=== PATIENT | male | born 1965 ===

== ENCOUNTER 2017-09-01 08:54 | Emergency (ER) | payer BC ==
[2017-09-01] MEDS ORDERED: Ketorolac 30 MG/ML SDV IVPUSH ONE (08:59)
--- NOTE | 2017-09-01 09:02 | EDM.PDOC ---
ED HPI GENERAL MEDICAL PROBLEM - General Stated Complaint: FALL Time Seen by Provider: 09/01/17 08:59 - History of Present Illness INITIAL COMMENTS - FREE TEXT/NARRATIVE: HISTORY AND PHYSICAL: History of present illness: The patient is a 51-year-old male who presents via EMS after slipping on the ice and falling his own height hitting his head complaining of head and neck pain. Patient states he was in his usual state of good health with no systemic complaints prior to these events. He did not pass out or blacked out but did feel dazed and he felt nauseated initially but that has subsided. He has no motor weakness no extremity complaints no upper or lower back pain as a result of this incident. He has a history of lumbar spine surgery but nothing with the cervical spine. Patient did not receive any medications prior to coming here. Patient says he does feel tingling and some numbness in his left upper extremity but he doesn't feel weak. He has no chest pain abdominal pain rib pain or buttocks pain. Review of systems: As per history of present illness and below otherwise all systems reviewed and negative. Past medical history: As per history of present illness and as reviewed below otherwise noncontributory. Surgical history: As per history of present illness and as reviewed below otherwise noncontributory. Social history: No reported history of drug or alcohol abuse. Family history: As per history of present illness and as reviewed below otherwise noncontributory. Physical exam: Gen.: Well-developed overweight male who is nontoxic and please note that a c- collar was placed on patient's arrival in the ED as EMS did not have an appropriate size and held manual C-spine prior to coming here HEENT: Atraumatic, normocephalic, pupils reactive, negative for conjunctival pallor or scleral icterus, mucous membranes moist, throat clear, neck supple, nontender, trachea midline. There are no palpable scalp deformities and no gross tenderness on the scalp. There are no midline step-offs or defects appreciated of the cervical spine but there is diffuse tenderness in the mid and upper C-spine region. C-collar was maintained. Lungs: Clear to auscultation, breath sounds equal bilaterally, chest nontender. Heart: S1S2, regular, negative for clicks, rubs, or JVD. Abdomen: Soft, nondistended, nontender. Negative for masses or hepatosplenomegaly. NABS Pelvis: Stable nontender. No lateral hip tenderness Genitourinary: Deferred. Rectal: Deferred. Extremities: Atraumatic, negative for cords or calf pain. Neurovascular unremarkable. Full range of motion without defects or deficits Neuro: Awake, alert, oriented. Cranial nerves II through XII unremarkable. Cerebellum unremarkable. Motor and sensory unremarkable throughout. Exam nonfocal. Skin plantarflexion are intact 5/5 inclusive of the great toe and slag dumper strength is normal. Back: There are no midline step-offs in his defects of the thoracic or lumbar spine no posterior rib or posterior pelvis tenderness and no soft tissue defects or injuries are seen Diagnostics: CT scan of the head and C-spine Therapeutics: Toradol Patient and at bedside are aware of testing results and the patient tells me that he no longer has the tingling and numb-like feeling in his left arm. C- collar was removed and there is a lot of muscle spasm on palpation. I will give the patient NSAIDs and muscle relaxers for home and advised no work today or tomorrow. Advised him on reasons to return to the ED. Impression: Fall, acute cervical strain/sprain, closed head injury stable Definitive disposition and diagnosis as appropriate pending reevaluation and review of above. Neck Pain Score (Numeric/FACES): 7 - Related Data Allergies Allergy/AdvReac Type Severity Reaction Status Date / Time No Known Allergies Allergy Verified 09/01/17 09:04 Home Meds: Home Meds . [No Known Home Meds] 09/01/17 [History] ED ROS GENERAL - Review of Systems Review Of Systems: ROS reveals no pertinent complaints other than HPI. ED EXAM, GENERAL - Physical Exam Exam: See Below (See dictation) Course - Vital Signs Last Recorded V/S: Last Vital Signs Temp Pulse 74 09/01/17 08:59 Resp 14 09/01/17 08:59 BP 138/84 09/01/17 08:59 Pulse Ox 96 09/01/17 08:59 - Orders/Labs/Meds Meds: Medications Discontinued Medications Generic Name Dose Route Start Last Admin Trade Name Freq PRN Reason Stop Dose Admin Ketorolac Tromethamine 30 mg 09/01/17 08:59 09/01/17 09:10 Toradol IVPUSH 09/01/17 09:00 30 mg ONETIME ONE Administration Departure - Departure Time of Disposition: 09:59 Disposition: Home, Self-Care 01 Condition: Good Clinical Impression: Cervical strain, acute Qualifiers: Encounter type: initial encounter Qualified Code(s): S16.1XXA - Strain of muscle, fascia and tendon at neck level, initial encounter Closed head injury Qualifiers: Encounter type: initial encounter Qualified Code(s): S09.90XA - Unspecified injury of head, initial encounter - Discharge Information Additional Instructions: The following information is given to patients seen in the emergency department who are being discharged to home. This information is to outline your options for follow-up care. We provide all patients seen in our emergency department with a follow-up referral. The need for follow-up, as well as the timing and circumstances, are variable depending upon the specifics of your emergency department visit. If you don't have a primary care physician on staff, we will provide you with a referral. We always advise you to contact your personal physician following an emergency department visit to inform them of the circumstance of the visit and for follow-up with them and/or the need for any referrals to a consulting specialist. The emergency department will also refer you to a specialist when appropriate. This referral assures that you have the opportunity for followup care with a specialist. All of these measure are taken in an effort to provide you with optimal care, which includes your followup. Under all circumstances we always encourage you to contact your private physician who remains a resource for coordinating your care. When calling for followup care, please make the office aware that this follow-up is from your recent emergency room visit. If for any reason you are refused follow-up, please contact the [facility] emergency department at and ask to speak to the emergency department charge nurse. [facility]- [place] [address] Please apply ice to oral areas of discomfort for the next 24 hours and then switch to heat. Use medications as needed and prescribed. Only take the muscle relaxers when you're at home. Please return to ER as needed and as discussed and call and get a follow-up appointment with either one of our clinic providers or your occupational health person for clearance to return to work. Expect aches and pains for the next 24 hours to several days which will slowly improve
--- NOTE | 2017-09-01 09:49 | CT ---
EXAMINATION: Non contrast CT head. Coronal and sagittal reformats. HISTORY: Pain FINDINGS: No evidence of intra or extra axial hemorrhage, mass, midline shift, hydrocephalus or edema. There a re a few small scattered periventricular and subcortical white matter hypodensities, nonspecific. No hypoattenuation changes in the major vascular territories to suggest acute infarct. No abnormal intracranial calcifications are detected. No evidence of substantial vascular calcificat ions. Paranasal sinuses and mastoid air cells are well aerated without substantial findings. The orbits an d globes are symmetric. Pituitary fossa appears unremarkable. Calvarium is intact. No evidence of skull fracture. IMPRESSION: 1. No acute intracranial findings. 2. Mild small vessel ischemic changes.
--- NOTE | 2017-09-01 09:53 | CT ---
EXAMINATION: CT cervical spine HISTORY: Pain COMPARISON: None TECHNIQUE: Axial CT images obtained through the cervical spine without contrast. Coronal and sagittal reconstructions obtained. FINDINGS: The cervical spinal alignment is normal. The vertebral body heights and disc spaces appear well-maintained. Bone mineralization is normal. Mild marginal osteophytes are noted. The paravertebra l soft tissues appear normal. The lung apices are clear. IMPRESSION: 1. Mild degenerative changes without acute findings.
== END 2017-09-01 10:11 | disposition home or self-care (01) ==
LOC: MW.ED 08:54
DX: S09.90XA Unspecified injury of head, initial encounter (principal); S16.1XXA Strain of muscle, fascia and tendon at neck level, initial encounter; S13.9XXA Sprain of joints and ligaments of unspecified parts of neck, initial encounter; W00.0XXA Fall on same level due to ice and snow, initial encounter
CPT/HCPCS: 70450; 72125; 96374; 99283; J1885